=== PATIENT | male | born 1975 | race Caucasian/White ===

== ENCOUNTER 2022-08-10 05:41 | Outpatient (CLI) | payer BC ==
[~2022-08-10] VITALS: Ht 177.8 cm; Wt 90.9 kg
[2022-08-14] MEDS ORDERED: LISI40TA9 PO (16:52)
[2022-08-14] MEDS ORDERED: FENO134C21 PO (16:52)
== END 2022-08-14 16:55 | disposition home or self-care (01) ==
LOC: PREOP 05:41
PROVIDERS: ATTEND Internal Medicine
DX: Z01.818 Encounter for other preprocedural examination (principal)

== ENCOUNTER 2022-08-18 09:10 | Day surgery (SDC) | payer BC ==
--- NOTE | 2022-08-10 07:43 | HISTORY AND PHYSICAL ---
DATE OF SERVICE: 08/18/2022 COLONOSCOPY AND EGD HISTORY AND PHYSICAL HISTORY OF PRESENT ILLNESS: The patient is a 47-year-old white male being referred for his first screening colonoscopy as well as a diagnostic EGD. He reports that since a young age around [age], he is required H2 camille therapy. Without it, he has epigastric discomfort. He has had no previous history of EGD or upper GI evaluation. He reports that he is likely put on several pounds of weight over the past year. No history of weight loss. He denies dysphagia or odynophagia and has noted no melena or bright red blood per rectum. He is not aware of any family history for GI tract malignancy. PAST MEDICAL HISTORY: Significant for hypertension, hyperlipidemia with insomnia, sleep onset. He has no known history of cardiovascular disease. FAMILY HISTORY: Not aware of any family history for any type of GI tract malignancy. PAST SURGICAL HISTORY: He reports he had left arthroscopic shoulder surgery a number of years ago, no joint replacement. SOCIAL HISTORY: He is , currently employed at [employer]. He does use smokeless tobacco with a previous 75-ioud-lrup smoking history, but quit a number of years ago, reports about 3 drinks per week. REVIEW OF SYSTEMS: CONSTITUTIONAL: Denies night sweats, chills or fever. There has been some weight gain, although he is not sure how much over the past year. GASTROINTESTINAL: As noted in the HPI. PULMONARY: Denies cough, wheezing or shortness of breath. CARDIOVASCULAR: Denies chest discomfort, orthopnea, PND, pedal edema or syncope. PHYSICAL EXAMINATION: GENERAL: Reveals a well-appearing white male in no acute distress. VITAL SIGNS: Weight 203 pounds, blood pressure 130/80. HEENT: Unremarkable. Sclerae nonicteric. CHEST: Clear to auscultation. CARDIOVASCULAR: Reveals a regular rate and rhythm without murmur, S3 or S4. ABDOMEN: Soft, supple. The patient does have some epigastric discomfort to palpation without rebound or guarding. No bruits are noted. Bowel sounds are positive. EXTREMITIES: Reveal no cyanosis, clubbing or edema. ASSESSMENT AND PLAN: The patient is being set up for screening colonoscopy and diagnostic EGD to a longstanding reported history of reflux and increase in epigastric pain. Prep instructions with [facility] were given and medical record was reviewed and questions were answered. Thank you for referral of this pleasant gentleman. Job ID: [id number] DocumentID: [id number] Dictated Date: 08/07/2022 18:12:19 Sas Programmer Analyst Date: 08/07/2022 18:41:00 Dictated By: ROSALIA CRAWFORD MD
[~2022-08-18] VITALS: Ht 177 cm; Wt 90.9 kg
[~2022-08-18 09:10] MED LIST: FENO134C21 PO; LISI40TA9 PO
[2022-08-18] MEDS ORDERED: LACTATED RINGERS 1,000 ML IV STA (09:12)
[2022-08-18] MEDS ORDERED: HURRICAINE EXT TUBE (BENZOCAINE) XX PRN (09:15)
[2022-08-18 09:30] VITALS: BP 138/108
--- NOTE | 2022-08-18 09:59 | Pre-Op Note & Conscious Sedat ---
Pre-Operative Progress Note Date H&P Reviewed: Aug 18, 2022 Time H&P Reviewed: 09:45 History & Physical: H&P Reviewed, Patient Examed, No changes noted Pre-Op Diagnosis: screening Conscious Sedation Pre-Proced ASA Score 2 For ASA 3 and 4: Consider anesthesia and medical clearance. Also, for patients with a history of failed moderate sedation consider anesthesia. Airway Lungs Heart ASA score ASA 1: a normal healthy patient ASA 2: a patient with a mild systemic disease (mid diabetes, controlled hypertension, obesity ASA 3: a patient with a severe systemic disease that limits activity (angina, COPD, prior Myocardial infarction) ASA 4: a patient with an incapacitating disease that is a constant threat to life (CHF, renal failure) ASA 5: a moribund patient not expected to survive 24 hrs. (ruptured aneurysm) ASA 6: a declared brain- patient whose organs are being harvested. For emergent operations, add the letter E after the classification Mallampati Classification Grade 2 Sedation Plan Analgesia, Amnesia, Plan communicated to team members, Discussed options with patient/fam, Discussed risks with patient/fam The patient is an appropriate candidate to undergo the planned procedure, sedation, and anesthesia. The patient immediately re-assessed prior to indication. ROSALIA RCAWFORD MD Aug 18, 2022 09:59
[2022-08-18] MEDS ORDERED: MIDAZOLAM 2 MG/2 ML (VERSED) VIAL ONE (10:30)
[2022-08-18] MEDS ORDERED: PROPOFOL INJECTION 50 ML IV ONE ×2 (10:30→10:48)
[2022-08-18 11:05] VITALS: BP 116/70
[2022-08-18 11:10] VITALS: BP 116/67
[2022-08-18 11:15] VITALS: BP 117/72
[2022-08-18 11:20] VITALS: BP 120/65
--- NOTE | 2022-08-18 11:22 | Progress Note-Post Operative ---
Post-Procedure Note Physician (s)/Casing Cleaner (s) Physician ROSALIA CRAWFORD MD Pre-Procedure Diagnosis Pre-Procedure Diagnosis: screening Post-Procedure Diagnosis Post-operative diagnosis: EGD was performed for evaluation of epigastric pain with reflux sounding symptoms. The upper endoscope was inserted into the oral cavity and under direct visualization the esophagus is intubated. The discussed passed down the esophagus through the stomach into the second portion of the duodenum. A careful inspection was made as the endoscope was withdrawn. Findings the posterior pharynx epiglottis arytenoid aperture and true and false vocal folds were unremarkable to gross inspection. The proximal and midesophagus was unremarkable. There is some mild erythema noted at the Z-line without evidence for erosive esophagitis. There was no evidence for hiatal hernia formation and no furling of the esophagus to suggest eosinophilic esophagitis. The cardia and fundus of the stomach were unremarkable there was some antral erythema present a biopsy was obtained and submitted for histopathology. The pylorus the pyloric channel duodenal bulb and second portion that he unremarkable to gross inspection. Assessment: Mild erythema was noted the Z-line suggesting nonerosive reflux change biopsies were obtained. Mild antral erythema was present. Biopsies were obtained and submitted for histopathology. Suspect a component of alcohol-related gastropathy. We then proceeded with colonoscopy for screening purposes. Prior to undergoing colonoscopy digital rectal evaluation was performed. Anal suture tone was normal and the perianal reflexes intact. No abnormalities noted visual specks in anal canal or distal rectal vault. The colonoscope was then inserted into the rectum and under direct visualization advanced to the cecum. The cecum was identified by identification of the ileocecal valve and the cecal strap. Photographic documentation was obtained. Quality of prep was good. Findings: There is evidence for internal or external hemorrhoids. The venous plexus of the rectum was slightly prominent with no other rectal abnormalities being appreciated. Mild to moderate diverticular disease confined to the sigmoid colon was present with no other sigmoid colonic abnormalities being appreciated. The descending colon splenic flexure transverse colon hepatic flexure ascending colon and cecum were unremarkable. Assessment: Mild to moderate diverticular disease confined to the sigmoid colon was present without evidence for diverticulitis. No evidence for neoplasia was identified. Patient required 4 times the usual amount of Diprovan to obtain sedation in addition to 2 mg of Versed. When I question his about how much drinking as she angrily told me that he had chosen alcohol over their marriage conservatively estimating that he has at least a liter of whiskey per week. I discussed that his epigastric pain was likely related to alcohol in regards to direct toxic effects to the mucosal as well as aggravating reflux and he was strongly advised to quit. Discussed in light of the fact that his venous plexus in the rectum was a little more prominent his risk for cirrhosis with significant and continuing alcohol consumption would have a negative impact on quality of life as well as quantity of life. Sincerely, Rosalia Crawford MD. CC: Dr. Anjelica Jenkins. ROSALIA CRAWFORD MD Aug 18, 2022 11:22
[2022-08-18 11:40] VITALS: BP 129/94
--- NOTE | 2022-08-18 13:26 | Anesthesia-General Post-Op ---
MAC Patient Condition Mental Status/LOC: Same as Preop Cardiovascular: Satisfactory Nausea/Vomiting: Absent Respiratory: Satisfactory Pain: Controlled Complications: Absent Post Op Complications Complications None Follow Up Care/Instructions Patient Instructions None needed. Anesthesiology Discharge Order Discharge Order Patient is doing well, no complaints, stable vital signs, no apparent adverse anesthesia problems. No complications reported per nursing. GILDARDO MARR CRNA Aug 18, 2022 13:26
== END 2022-08-18 12:15 | disposition home or self-care (01) ==
LOC: ENDO 09:10
PROVIDERS: ATTEND Internal Medicine
DX: Z12.11 Encounter for screening for malignant neoplasm of colon (principal); K21.00 Gastro-esophageal reflux disease with esophagitis, without bleeding; K57.30 Diverticulosis of large intestine without perforation or abscess without bleeding; K31.89 Other diseases of stomach and duodenum; F17.290 Nicotine dependence, other tobacco product, uncomplicated

== ENCOUNTER 2023-01-18 02:28 | Emergency (ER) | payer BC ==
[~2023-01-18] VITALS: Ht 178 cm; Wt 84.0 kg
[2023-01-18] MEDS ORDERED: ATOR40TA70 (02:45)
[2023-01-18] MEDS ORDERED: PANT40TA52 (02:45)
[2023-01-18] MEDS ORDERED: DOXE10CA29 (02:45)
[2023-01-18] MEDS ORDERED: AMLO2.5T4 (02:45)
[2023-01-18] MEDS ORDERED: KETOROLAC 30 MG/ML VIAL IVP STA (02:46)
[2023-01-18 02:53] LABS: BASOPHILS # (AUTO) 0.1 10^3/uL (0.0-0.1); BASOPHILS % (AUTO) 1 % (0-10); EOSINOPHILS # (AUTO) 0.1 10^3/uL (0.0-0.3); EOSINOPHILS % (AUTO) 1 % (0-10); HEMATOCRIT 43 % (40-54); HEMOGLOBIN 15.1 g/dL (13.3-17.7); LYMPHOCYTES # (AUTO) 1.5 10^3/uL (1.0-4.0); LYMPHOCYTES % (AUTO) 10 % (12-44); MEAN CORPUSCULAR HEMOGLOBIN 30 pg (25-34); MEAN CORPUSCULAR HGB CONC 35 g/dL (32-36); MEAN CORPUSCULAR VOLUME 86 fL (80-99); MEAN PLATELET VOLUME 8.9 fL (9.0-12.2); MONOCYTES # (AUTO) 0.3 10^3/uL (0.0-1.0); MONOCYTES % (AUTO) 2 % (0-12); NEUTROPHILS # (AUTO) 12.3 10^3/uL (1.8-7.8); NEUTROPHILS % (AUTO) 86 % (42-75); PLATELET COUNT 383 10^3/uL (130-400); WHITE BLOOD COUNT 14.3 10^3/uL (4.3-11.0)
[2023-01-18 03:00] LABS: ALBUMIN 4.9 GM/DL (3.2-4.5); CHLORIDE 105 MMOL/L (98-107); POTASSIUM 4.3 MMOL/L (3.6-5.0); SODIUM 138 MMOL/L (135-145)
[2023-01-18] MEDS ORDERED: ONDANSETRON 4 MG/2 ML (SDV) Z0FRAN IVP ONE (03:00)
[2023-01-18] MEDS ORDERED: LACTATED RINGERS 1,000 ML IV ONE ×2 (03:00→05:00)
[2023-01-18 03:01] LABS: CALCIUM 9.8 MG/DL (8.5-10.1)
[2023-01-18 03:02] LABS: GLUCOSE 122 MG/DL (70-105); TOTAL PROTEIN 7.7 GM/DL (6.4-8.2)
[2023-01-18 03:03] LABS: CARBON DIOXIDE 18 MMOL/L (21-32)
[2023-01-18 03:04] LABS: BILIRUBIN,TOTAL 0.4 MG/DL (0.1-1.0)
[2023-01-18 03:05] LABS: ALKALINE PHOSPHATASE 52 U/L (40-136)
[2023-01-18 03:06] LABS: CREATININE SERUM 1.03 MG/DL (0.60-1.30); GFR ESTIMATED 89
[2023-01-18 03:07] LABS: BUN/CREATININE RATIO 22
[2023-01-18 03:08] LABS: BAND NEUTROPHILS 1 %; BASOPHILS % (MANUAL) 0 %; EOSINOPHILS % (MANUAL) 0 %; LYMPHOCYTES % (MANUAL) 11 %; MONOCYTES % (MANUAL) 2 %; NEUTROPHILS % (MANUAL) 82 %; RBC MORPH NORMAL; REACTIVE LYMPHOCYTES 4 %
[2023-01-18 03:09] LABS: ALANINE AMINOTRANSFERASE 25 U/L (0-55); ERYTHROCYTE SEDIMENTATION RATE 4 MM/HR (0-15)
[2023-01-18 03:11] LABS: BILIRUBIN,URINE NEGATIVE (NEGATIVE); CLARITY,URINE CLOUDY; COLOR,URINE YELLOW; GLUCOSE, URINE (UA) NEGATIVE (NEGATIVE); KETONES,URINE NEGATIVE (NEGATIVE); LEUKOCYTE ESTERASE ,URINE NEGATIVE (NEGATIVE); NITRITE,URINE NEGATIVE (NEGATIVE); PH,URINE 5.5 (5-9); PROTEIN,URINE 2+ (NEGATIVE)
[2023-01-18 03:19] LABS: BACTERIA,URINE TRACE /HPF; RBC,URINE TNTC /HPF; SQUAMOUS EPITHELIAL CELL,UR RARE /HPF; WBC,URINE 0-2 /HPF
[2023-01-18 03:20] LABS: HYALINE CASTS, URINE RARE /LPF
[2023-01-18] MEDS ORDERED: morphine INJ 10 MG/ML 1ML (SYR OR VIAL) IVP STA (03:42)
--- NOTE | 2023-01-18 03:52 | ED Abdominal Pain ---
General Chief Complaint: Abdominal/GI Problems Stated Complaint: ABD PAIN Nursing Triage Note: RIGHT LOWER ABDOMINAL PAIN/NAUSEA SINCE 199901/17/23 Source of Information: Patient History of Present Illness Date Seen by Provider: January 18, 2023 Time Seen by Provider: 02:43 Initial Comments PT ARRIVES VIA POV FROM HOME C/O RLQ PAIN SINCE 1999 THIS EVENING PAIN IS CONSTANT, WAXES AND WANES IN INTENSITY. RATES PAIN 9/10 NO RADIATION OF PAIN NOTHING WORSENS OR IMPROVES PAIN TOOK AN IBUPROFEN AT 2200 WITHOUT RELIEF C/O NAUSEA, NO VOMITING UNABLE TO VOID SINCE PAIN BEGAN. LAST VOID WAS AROUND 1700 HAS NOT CHECKED TEMP, BUT HAS HAD CHILLS LAST FOOD INTAKE--PT STATES HE "DIDN'T REALLY EAT SUPPER" NO HISTORY OF SIMILAR NO PRIOR ABDOMINAL SURGERIES PT HAS HISTORY OF HTN, HYPERLIPIDEMIA PCP: DR. REED Allergies and Home Medications Allergies Coded Allergies: No Known Drug Allergies (Unverified , 08/14/22) Patient Home Medication List Home Medication List Reviewed: Yes Amlodipine Besylate (Amlodipine Besylate) 2.5 Mg Tablet, (Reported) Entered as Reported by: MARITZA LEE on 01/18/23244 Last Action: New Order Atorvastatin Calcium (Atorvastatin Calcium) 40 Mg Tablet, (Reported) Entered as Reported by: MARITZA LEE on 01/18/23244 Last Action: New Order Doxepin HCl (Doxepin HCl) 10 Mg Capsule, (Reported) Entered as Reported by: MARITZA LEE on 01/18/23244 Last Action: New Order Fenofibrate,Micronized (Fenofibrate) 134 Mg Capsule, 134 MG PO UD, (Reported) Entered as Reported by: BANDAR SANCHEZ on 08/14/221651 Hydrocodone Bit/Acetaminophen (HYDROcodone/APAP 7.5/325 TAB) 1 Ea Tablet, 1 EA PO Q4-6 PRN for PAIN Prescribed by: MENDEZ DAVALOS on 01/18/23523 Ketorolac Tromethamine (Ketorolac Tromethamine) 10 Mg Tablet, 10 MG PO Q6H Prescribed by: MENDEZ DAVALOS on 01/18/23523 Lisinopril (Lisinopril) 40 Mg Tablet, 40 MG PO DAILY, (Reported) Entered as Reported by: BANDAR SANCHEZ on 08/14/221651 Ondansetron (Ondansetron Odt) 8 Mg Tab.rapdis, 8 MG PO Q6H Prescribed by: MENDEZ DAVALOS on 01/18/23523 Pantoprazole Sodium (Pantoprazole Sodium) 40 Mg Tablet., (Reported) Entered as Reported by: MARITZA LEE on 01/18/23 0245 Last Action: New Order Tamsulosin HCl (Flomax) 0.4 Mg Cap, 0.4 MG PO DAILY Prescribed by: MENDEZ DAVALOS on 01/18/23523 Review of Systems Review of Systems Constitutional: see HPI Respiratory: No Symptoms Reported Cardiovascular: No Symptoms Reported Gastrointestinal: See HPI, Abdominal Pain; Denies Constipated, Denies Diarrhea; Nausea; Denies Vomiting Genitourinary: See HPI Musculoskeletal: no symptoms reported; No back pain Skin: no symptoms reported Psychiatric/Neurological: No Symptoms Reported Endocrine: No Symptoms Reported Hematologic/Lymphatic: No Symptoms Reported Past Claaqeb-Pwspgd-Fwnyrg Hx Patient Social History Tobacco Use?: Yes Tobacco type used: Cigarettes Substance use?: No Alcohol Use?: Yes Alcohol Frequency: Once in a while Pt feels they are or have been: No Immunizations Up To Date First/Initial COVID19 Vaccinat: 2020 Second COVID19 Vaccination Syed: 2020 Third COVID19 Vaccination Date: 08/2021 Seasonal Allergies Seasonal Allergies: Yes Past Medical History Surgery/Hospitalization HX: HTN, HLD, GERD, LEFT SHOULDER Surgeries: Yes (LEFT SHOULDER SCOPE; EGD) Orthopedic Respiratory: No Cardiac: Yes High Cholesterol, Hypertension Neurological: No Genitourinary: No Gastrointestinal: Yes Gastroesophageal Reflux Musculoskeletal: No Endocrine: No HEENT: No Cancer: No Psychosocial: Yes Sleep Difficulties Integumentary: No Blood Disorders: No Physical Exam Vital Signs Vital Signs - First Documented 01/18/23 02:40 Temp 36.6 Pulse 61 Resp 18 B/P (MAP) 130/76 (94) Pulse Ox 98 O2 Delivery Room Air Capillary Refill : Less Than 3 Seconds Height/Weight/BMI Height: '" Weight: lbs. oz. kg; 26.00 BMI Method: General Appearance: WD/WN, no apparent distress (SOMEWHAT ANXIOUS AND LOOKS UNCOMFORTABLE) Respiratory: normal breath sounds, no respiratory distress, respiratory distress Cardiovascular: regular rate, rhythm, no murmur Gastrointestinal: normal bowel sounds, soft; No distended, No guarding, No rebound; tenderness (RLQ); No hernia, No mass Extremities: normal inspection Back: normal inspection, no CVA tenderness Neurologic/Psychiatric: receiving barn custodian II-XII nml as tested, no motor/sensory deficits, alert, oriented x 3 Skin: normal color, warm/dry Progress/Results/Core Measures Results/Orders Lab Results Laboratory Tests Test 01/18/23 02:45 01/18/23 03:00 Range/Units White Blood Count 14.3 H 4.3-11.0 10^3/uL Red Blood Count 4.97 4.30-5.52 10^6/uL Hemoglobin 15.1 13.3-17.7 g/dL Hematocrit 43 40-54 % Mean Corpuscular Volume 86 80-99 fL Mean Corpuscular Hemoglobin 30 25-34 pg Mean Corpuscular Hemoglobin Concent 35 32-36 g/dL Red Cell Distribution Width 11.9 10.0-14.5 % Platelet Count 383 130-400 10^3/uL Mean Platelet Volume 8.9 L 9.0-12.2 fL Immature Granulocyte % (Auto) 0 % Neutrophils (%) (Auto) 86 H 42-75 % Lymphocytes (%) (Auto) 10 L 12-44 % Monocytes (%) (Auto) 2 0-12 % Eosinophils (%) (Auto) 1 0-10 % Basophils (%) (Auto) 1 0-10 % Neutrophils # (Auto) 12.3 H 1.8-7.8 10^3/uL Lymphocytes # (Auto) 1.5 1.0-4.0 10^3/uL Monocytes # (Auto) 0.3 0.0-1.0 10^3/uL Eosinophils # (Auto) 0.1 0.0-0.3 10^3/uL Basophils # (Auto) 0.1 0.0-0.1 10^3/uL Immature Granulocyte # (Auto) 0.1 0.0-0.1 10^3/uL Neutrophils % (Manual) 82 % Lymphocytes % (Manual) 11 % Monocytes % (Manual) 2 % Eosinophils % (Manual) 0 % Basophils % (Manual) 0 % Band Neutrophils 1 % Reactive Lymphocytes 4 % Blood Morphology Comment NORMAL Erythrocyte Sedimentation Rate 4 0-15 MM/HR Sodium Level 138 135-145 MMOL/L Potassium Level 4.3 3.6-5.0 MMOL/L Chloride Level 105 98-107 MMOL/L Carbon Dioxide Level 18 L 21-32 MMOL/L Anion Gap 15 H 5-14 MMOL/L Blood Urea Nitrogen 23 H 7-18 MG/DL Creatinine 1.03 0.60-1.30 MG/DL Estimat Glomerular Filtration Rate 89 BUN/Creatinine Ratio 22 Glucose Level 122 H 70-105 MG/DL Calcium Level 9.8 8.5-10.1 MG/DL Corrected Calcium 8.5-10.1 MG/DL Total Bilirubin 0.4 0.1-1.0 MG/DL Aspartate Amino Transf (AST/SGOT) 22 5-34 U/L Alanine Aminotransferase (ALT/SGPT) 25 0-55 U/L Alkaline Phosphatase 52 40-136 U/L C-Reactive Protein High Sensitivity 0.06 0.00-0.50 MG/DL Total Protein 7.7 6.4-8.2 GM/DL Albumin 4.9 H 3.2-4.5 GM/DL Urine Color YELLOW Urine Clarity CLOUDY Urine pH 5.5 5-9 Urine Specific [place] >=1.030 1.016-1.022 Urine Protein 2+ H NEGATIVE Urine Glucose (UA) NEGATIVE NEGATIVE Urine Ketones NEGATIVE NEGATIVE Urine Nitrite NEGATIVE NEGATIVE Urine Bilirubin NEGATIVE NEGATIVE Urine Urobilinogen 0.2 < = 1.0 MG/DL Urine Leukocyte Esterase NEGATIVE NEGATIVE Urine RBC (Auto) 3+ H NEGATIVE Urine RBC TNTC H /HPF Urine WBC 0-2 /HPF Urine Squamous Epithelial Cells RARE /HPF Urine Crystals NONE /LPF Urine Bacteria TRACE /HPF Urine Casts PRESENT /LPF Urine Hyaline Casts RARE /LPF Urine Mucus SMALL H /LPF Urine Culture Indicated NO My Orders Orders - MENDEZ DAVALOS DO Ed Iv/Invasive Line Start (01/18/23 02:46) Monitor-Rhythm Ecg Trace Only (01/18/23 02:46) Ct Abd/Pelvis Wo(Kidney Stone) (01/18/23 02:46) Abdomen/Kub 1view (01/18/23 02:46) Cbc With Automated Diff (01/18/23 02:46) Comprehensive Metabolic Panel (01/18/23 02:46) Hs C Reactive Protein (01/18/23 02:46) Ua Culture If Indicated (01/18/23 02:46) Erythrocyte Sedimentation Rate (01/18/23 02:46) Ed Iv/Invasive Line Start (01/18/23 02:46) Lactated Ringers (Lr 1000 Ml Iv Solution (01/18/23 03:00) Ondansetron Injection (Zofran Injectio (01/18/23 03:00) Ketorolac Injection (Toradol Injection) (01/18/23 02:46) Manual Differential (01/18/23 02:45) Morphine Injection (Morphine Injection (01/18/23 03:42) Tamsulosin Capsule (Flomax Capsule) (01/18/23 05:00) Morphine Injection (Morphine Injection (01/18/23 05:00) Ed Iv/Invasive Line Start (01/18/23 04:46) Lactated Ringers (Lr 1000 Ml Iv Solution (01/18/23 05:00) Rx-Hydrocodone/Apap 5-325 Mg (Rx-Vicodin (01/18/23 05:30) Medications Given in ED Current Medications Medications Dose Ordered Sig/Hemalatha Route Start Time Stop Time Status Last Admin Dose Admin Acetaminophen/ Hydrocodone Bitart 1 ea Q4H PRN PO 01/18/23 05:30 01/18/23 05:57 DC 01/18/23 05:56 1 EA Lactated Ringer's 1,000 ml @ 0 mls/hr Q0M ONCE IV 01/18/23 03:00 01/18/23 03:01 DC 01/18/23 02:58 0 MLS/HR Lactated Ringer's 1,000 ml @ 0 mls/hr Q0M ONCE IV 01/18/23 05:00 01/18/23 05:01 DC 01/18/23 04:54 0 MLS/HR Morphine Sulfate 4 mg ONCE ONCE IVP 01/18/23 05:00 01/18/23 05:01 DC 01/18/23 04:54 4 MG Ondansetron HCl 4 mg ONCE ONCE IVP 01/18/23 03:00 01/18/23 03:01 DC 01/18/23 03:00 4 MG Vital Signs/I&O 01/18/23 01/18/23 02:40 05:56 Temp 36.6 Pulse 61 74 Resp 18 20 B/P (MAP) 130/76 (94) 124/76 Pulse Ox 98 98 O2 Delivery Room Air Room Air Blood Pressure Mean: 94 Progress Progress Note : Progress Note GIVEN: -IV FLUIDS -ZOFRAN -TORADOL--PAIN DOWN TO 5/10 -MORPHINE Departure Impression Primary Impression: Right distal ureteral calculus Disposition: HOME, SELF-CARE Condition: Improved Departure-Patient Inst. Decision time for Depature: 05:20 Referrals: REYMUNDO REED DO (PCP/Family) Primary Care Physician Patient Instructions: How to Strain Your Urine, Kidney Stone, Adult ED, Kidney Stone Diet Add. Discharge Instructions: LOTS OF CLEAR LIQUIDS--DRINK ENOUGH SO YOU ARE URINATING EVERY 2 HORUS WHILE AWAKE STRAIN ALL URINE--RETURN ANY STONES TO UROLOGIST OFFICE FOR ANALYSIS FOLLOW UP WITH UROLOGIST OF CHOICE--THERE ARE UROLOGY SERVICES AT [facility], AND [facility] IN [place]. CALL TODAY TO SCHEDULE A FOLLOW UP APPOINTMENT RETURN TO ER IF YOUR SYMPTOMS WORSEN All discharge instructions reviewed with patient and/or family. Voiced understanding. Scripts Ondansetron (Ondansetron Odt) 8 Mg Tab.rapdis 8 MG PO Q6H, #10 TAB Prov: MENDEZ DAVALOS DO 01/18/23 Hydrocodone Bit/Acetaminophen (HYDROcodone/APAP 7.5/325 TAB) 1 Ea Tablet 1 EA PO Q4-6 PRN for PAIN, #20 TAB Prov: MENDEZ DAVALOS DO 01/18/23 Ketorolac Tromethamine (Ketorolac Tromethamine) 10 Mg Tablet 10 MG PO Q6H for Pain, #15 TAB Prov: MENDEZ DAVALOS DO 01/18/23 Tamsulosin HCl (Flomax) 0.4 Mg Cap 0.4 MG PO DAILY, #10 CAP Prov: MENDEZ DAVALOS DO 01/18/23 MENDEZ DAVALOS DO January 18, 2023 03:52
[2023-01-18] MEDS ORDERED: TAMSULOSIN 0.4 MG (FLOMAX) CAP PO SCH (05:00)
[2023-01-18] MEDS ORDERED: morphine INJ 4 MG/ML 1 ML (VIAL/SYRINGE) IVP ONE (05:00)
[2023-01-18] MEDS ORDERED: ONDA8TAB13 PO (05:24)
[2023-01-18] MEDS ORDERED: TMSL.4C PO (05:24)
[2023-01-18] MEDS ORDERED: HYDR-34 PO (05:24)
[2023-01-18] MEDS ORDERED: KETO10TA PO (05:24)
[2023-01-18 05:56] VITALS: BP 124/76
--- NOTE | 2023-01-18 06:34 | Diagnostic Imaging Report ---
Indication: Right flank pain KUB Lung bases are clear. Bowel gas pattern is normal. There are no pathologic masses calcifications. IMPRESSION: Unremarkable abdomen I agree with preliminary Emergency Room physician impression Dictated by: Dictated on workstation # [id number]
--- NOTE | 2023-01-18 07:59 | Diagnostic Imaging Report ---
PROCEDURE: CT urinary tract, rule out kidney stone. TECHNIQUE: Multiple contiguous axial images were obtained through the abdomen and pelvis without the use of intravenous contrast. Auto Exposure Controls were utilized during the CT exam to meet ALARA standards for radiation dose reduction. INDICATION: Right flank pain Lung bases are clear. Liver appears normal. Gallbladder is normal. Pancreas is normal. There are calcified granulomas in the spleen. Adrenals are normal. Left kidney is normal. There is hydronephrosis of the right kidney. There is a 7 mm calculus in the distal right ureter at the ureterovesical junction causing obstruction. Urinary bladder is decompressed. Small bowel is not dilated. There is no appendicitis. There is colonic diverticulosis without evidence of diverticulitis. There is no intraperitoneal free air or free fluid. IMPRESSION: Hydronephrosis right kidney secondary to 7 mm calculus in the right ureteral vesicle junction. There is uncomplicated diverticulosis of the colon. I agree with preliminary interpretation. Dictated by: Dictated on workstation # [id number]
== END 2023-01-18 05:57 | disposition home or self-care (01) ==
LOC: EDUNIT# 02:28 → ER 02:30
DX: N20.1 Calculus of ureter (principal); F17.210 Nicotine dependence, cigarettes, uncomplicated; Z87.19 Personal history of other diseases of the digestive system
CPT/HCPCS: 36415; 74018; 74176; 80053; 81000; 85007; 85027; 85652; 86141